=== PATIENT | male | born 1955 | race Caucasian/White ===

== ENCOUNTER 2023-03-12 06:15 | Inpatient (IN) ==
--- NOTE | 2023-02-20 12:30 | PAT Medication Instructions ---
Medication Instructions Date of Service February 20, 2023 Home Medications amoxicillin 500 mg tablet 500 mg PO BID celecoxib 200 mg capsule (Celebrex) 200 mg PO QAM cyclosporine 0.05 % eye drops in a dropperette (Restasis) 1 drp OPB Q12H upadacitinib 30 mg tablet,extended release 24 hr (Rinvoq) 30 mg PO QAM Continue as directed amoxicillin 500 mg tablet 500 mg PO BID ASK your surgeon for instructions celecoxib 200 mg capsule (Celebrex) 200 mg PO QAM ASK your prescriber and surgeon upadacitinib 30 mg tablet,extended release 24 hr (Rinvoq) 30 mg PO QAM Take morning of surgery OTHERWISE NOTHING TO EAT OR DRINK AFTER MIDNIGHT: cyclosporine 0.05 % eye drops in a dropperette (Restasis) 1 drp OPB Q12H Other Notes If you have any questions please call us at [phone] or [phone] or [phone] or [phone]
--- NOTE | 2023-02-26 10:15 | Anesthesiology Consultation ---
Date of Service February 26, 2023 Assessment & Plan (1) Encounter for pre-operative examination: Chart Review Chart Review: Acceptable Risk for Surgery (pending PCP clearance 03/03/23 and September 2021 cardiac testing ) and Patient seen in Pre Admission Testing - Awaiting PCP clearance 03/03/23 - Dr. Juan Archibald (please fax preop testing to PCP) - Please fax [facility] or Dr. Robert's office for stress test, ECHO and event monitor from September 2021 Per PAT appt on 02/26/23, no recent Covid exposures, Covid related symptoms, or recent Covid positive tests. Will leave to surgeon's discretion if preop Covid testing needed History Surgery Operation Date: 03/12/23 10:35 Proposed Procedures p L3-L5 Decompression and Fusion, Spinal Cord Monitoring - Morales Cade, DO Height/Weight Height: 5 ft 10 in Weight: 91.4 kg Allergies Allergy/AdvReac Type Severity Reaction Status Date / Time No Known Allergies Allergy Verified 02/20/23 09:02 Medications Home Medications Medication Instructions Recorded Confirmed Last Taken celecoxib 200 mg capsule (Celebrex) 200 mg PO QAM 02/20/23 02/20/23 Unknown cyclosporine 0.05 % eye drops in a 1 drp OPB Q12H 02/20/23 02/20/23 Unknown dropperette (Restasis) upadacitinib 30 mg tablet,extended 30 mg PO QAM 02/20/23 02/20/23 Unknown release 24 hr (Rinvoq) prednisone 5 mg tablet 5 mg PO DIRECTED PRN Pain 02/26/23 02/26/23 Unknown zolpidem 10 mg tablet (Ambien) 10 mg HS PRN Insomnia 02/26/23 02/26/23 Unknown Past Medical History Medical History Dry eye syndrome Osteoarthritis PAC (premature atrial contraction) had seen Dr. Robert last year for work-up "asymptomatic"- no cardio follow up needed Psoriatic arthritis Follows with rheum- prednisone PRN Stable currently Exercise / Class Metabolic Activity II 4-5 Yardwork/Stairs/Walk up hill (one flight of stairs - no chest pain or SOB ) Past Family History Family History Other No family history of adverse response to anesthesia Past Surgical History Surgical History H/O hemorrhoidectomy x 2 H/O hernia repair x 3 (hernia and umbilical site) History of anesthesia reaction was told with a surgery "the block didn't work" History of arthroscopy rt knee History of carpal tunnel release rt/left History of cataract surgery rt/left History of colonoscopy History of esophagogastroduodenoscopy (EGD) Hx of vasectomy S/P trigger finger release Past Anesthesia History No Hx of Anesthesia Complications (with exception to ineffective PNB) and No Family Hx of Anesthesia Complications History of PONV No Hx of PONV and Hx of Motion Sickness Social History Smoking Status: Never smoker Do You Dip or Chew Tobacco: No Hx Alcohol Use: No substance use type: does not use Review of Systems Patient denies chest pain, shortness of breath, dyspnea on exertion, reflux, cough, wheezing, palpitations. No hx of seizures, stroke, [place], apnea/snoring. No hx of blood clots or blood transfusions Physical Exam Vital Signs VITALS BP 131/76 P 57 TEMP 97.8 SP02 98% RES 16P Constitutional no acute distress ENMT Mouth: no TMJ clicking Thyromental Distance: > or= 3.5 Finger Breadths (4.0) Mallampati Class: I Crowns to molars and side teeth Permanent implant right side Neck neck extension not limited Respiratory normal respiratory effort; no respiratory distress Auscultation: lungs clear to auscultation bilaterally; no wheezes Cardiovascular Rate/Rhythm: regular rate and regular rhythm Heart Sounds: no murmur Vessels: no carotid bruit Musculoskeletal Spine: no pain with cervical ROM Extremities: extremities normal to inspection Psychiatric Orientation: alert Lab Results Anesthesia Preop Results Results Anesthesia Widget: WBC 5.22 K/ul (4.8-10.8) 02/26/23 Hgb 15.5 g/dl (14.0-18.0) 02/26/23 Hct 45.4 % (42.0-52.0) 02/26/23 Plt 258 K/uL (130-400) 02/26/23 Na 138 mmol/L (136-145) 02/26/23 K 4.7 mmol/L (3.5-5.1) 02/26/23 Cl 105 mmol/L (98-107) 02/26/23 CO2 27 mmol/L (21-32) 02/26/23 BUN 22 mg/dl (6-23) 02/26/23 Creat 0.86 mg/dl (0.6-1.4) 02/26/23 Glucose Level 96 mg/dl (70-99(Fasting)) 02/26/23 PT 11.6 Seconds (9.0-12.0) 02/26/23 PTT 28.5 Seconds (21.0-31.0) 02/26/23 INR 1.1 (0.9-1.1) 02/26/23 Urine Color Yellow 02/26/23 Urine Appearance Clear (Clear) 02/26/23 Urine pH 6.0 (4.5-7.5) 02/26/23 Urine Specific [place] 1.011 (1.000-1.030) 02/26/23 Urine Protein Negative (Negative) 02/26/23 Urine Glucose (UA) Negative (Negative) 02/26/23 Urine Ketones Negative (Negative) 02/26/23 Urine Blood Negative (Negative) 02/26/23 Urine Nitrite Negative (Negative) 02/26/23 Urine Bilirubin Negative (Negative) 02/26/23 Urine Urobilinogen Negative (Negative) 02/26/23 Urine Leukocyte Esterase Negative (Negative) 02/26/23 Blood Type O Positive 02/26/23 Antibody Screen NEGATIVE 02/26/23 Testing Electrocardiogram Date: 02/26/23 Findings: + SB @ (55bpm) Otherwise normal EKG per cardio Chest X-Ray Date: 02/26/23 Findings: + NAD FINDINGS: Cardiomediastinal and hilar silhouettes are within normal limits. No pneumothorax, pleural effusion or overt pulmonary edema. Degenerative changes of the shoulders and spine. Hyperinflation with diaphragmatic flattening. Cholecystectomy. Chronic appearing right-sided rib fractures.
[~2023-03-12 06:15] MED LIST: ACETAMINOPHEN 500 MG TAB PO SCH; CeleBREX 200 MG CAP PO SCH; GABAPENTIN 300 MG CAP PO SCH; LR 15ML/HR IV SCH; LR 60ML/HR IV SCH; ceFAZolin 2000MG 2,000 MG/15 ML SYR IV SCH
[2023-03-12] MEDS ORDERED: ePHEDrine sulfate 50 MG/ML AMP IV PRN (06:54)
[2023-03-12] MEDS ORDERED: ONDANSETRON INJ 2 MG/ML 2 ML VIAL IV PRN ×2 (06:54→11:38)
[2023-03-12] MEDS ORDERED: HYDROmorphone INJ 1 MG/ML SYRINGE IV PRN ×2 (06:54→11:38)
[2023-03-12] MEDS ORDERED: ATROPINE SULFATE 0.1 MG/ML 10ML SYR IV PRN (06:54)
[2023-03-12] MEDS ORDERED: MIDAZOLAM HCL 1 MG/ML 2ML VIAL ONE (06:56)
[2023-03-12] MEDS ORDERED: ONDANSETRON INJ 2 MG/ML 2 ML VIAL ONE (06:56)
[2023-03-12] MEDS ORDERED: PROPOFOL IV EMULSION 10 MG/ML 20 ML VIAL IV ONE (06:56)
[2023-03-12] MEDS ORDERED: DEXAMETHASONE SOD INJ 4 MG/ML VIAL ONE (06:56)
[2023-03-12] MEDS ORDERED: LIDOCAINE 2% 2 ML VIAL/AMP(20MG/ML) INFIL ONE (06:56)
[2023-03-12] MEDS ORDERED: fentaNYL citrate PF 100 MCG/2 ML VIAL ONE ×2 (06:56→09:59)
[2023-03-12] MEDS ORDERED: ROCURONIUM BROMIDE 10 MG/ML 5 ML VIAL IV ONE ×3 (06:56→08:14)
[2023-03-12] MEDS ORDERED: SUGAMMADEX SODIUM 200 MG/2 ML VIAL IV ONE (06:59)
[2023-03-12] MEDS ORDERED: BUPIVACAINE/EPINEPHRINE 0.25% 1:200,000 30 ML VIAL ONE (07:06)
[2023-03-12] MEDS ORDERED: ceFAZolin 330 MG/ML 1 GM VIAL ONE (07:06)
[2023-03-12] MEDS ORDERED: KETAMINE 50 MG/5 ML SYRINGE ONE (07:08)
--- NOTE | 2023-03-12 07:42 | History & Physical Bridge Note ---
Date of Service March 12, 2023 History & Physical Bridge Note I have examined the patient, reviewed the History & Physical and in the interval since the performance of the History & Physical I have noted the following changes of clinical significance: no changes noted
--- NOTE | 2023-03-12 07:43 | History & Physical Report ---
Date of Service March 12, 2023 Assessment & Plan (1) Neurogenic claudication due to lumbar spinal stenosis: Plan: Lumbar decompression and fusion L3-L5 History of Present Illness Chief Complaint: Back and leg pain Primary Care Provider: NO PCP Allergies Allergy/AdvReac Type Severity Reaction Status Date / Time No Known Allergies Allergy Verified 03/12/23 06:37 Home Medications Medication Instructions Recorded Confirmed Type celecoxib 200 mg capsule (Celebrex) 200 mg PO QAM 02/20/23 03/12/23 History cyclosporine 0.05 % eye drops in a 1 drp OPB Q12H 02/20/23 03/12/23 History dropperette (Restasis) upadacitinib 30 mg tablet,extended 30 mg PO QAM 02/20/23 03/12/23 History release 24 hr (Rinvoq) prednisone 5 mg tablet 5 mg PO DIRECTED PRN Pain 02/26/23 03/12/23 History zolpidem 10 mg tablet (Ambien) 10 mg HS PRN Insomnia 02/26/23 03/12/23 History Past Med/Surg History Medical History Dry eye syndrome Osteoarthritis PAC (premature atrial contraction) had seen Dr. Robert last year for work-up "asymptomatic"- no cardio follow up needed Psoriatic arthritis Follows with rheum- prednisone PRN Stable currently Surgical History H/O hemorrhoidectomy x 2 H/O hernia repair x 3 (hernia and umbilical site) History of anesthesia reaction was told with a surgery "the block didn't work" History of arthroscopy rt knee History of carpal tunnel release rt/left History of cataract surgery rt/left History of colonoscopy History of esophagogastroduodenoscopy (EGD) Hx of vasectomy S/P trigger finger release Family History Other No family history of adverse response to anesthesia Social History Smoking Status: Never smoker Second Hand Exposure: Yes (as a child); Do You Dip or Chew Tobacco: No; Hx Alcohol Use: No Preferred Language: Georgian Grommet 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
[2023-03-12] MEDS ORDERED: FLOSEAL HEMOSTATIC MATRIX 10ML TOP ONE (08:32)
[2023-03-12] MEDS ORDERED: PHENYLEPHRINE 100MCG/ML 5ML SYR ONE (08:59)
[2023-03-12] MEDS ORDERED: ePHEDrine sulfate 50 MG/5 ML SYR ONE (08:59)
[2023-03-12] MEDS ORDERED: SURGICEL ABSORB HEMOSTAT 2IN X 14IN TOP ONE (09:38)
--- NOTE | 2023-03-12 09:57 | Operative Report ---
Post Operative Report Pre & Post Diagnosis Operation Date: 03/12/23 07:45 Pre-Op Diagnosis: Neurogenic claudication due to lumbar spinal stenosis Post-Op Diagnosis: Neurogenic claudication due to lumbar spinal stenosis I identified the patient and participated in the time-out.: Yes Procedure Operation Date: 03/12/23 07:45 Actual Procedures #1 lumbar compression bilaterally vasectomies and foraminotomies L2-3, L3-L4 L4- 5. #2 posterior spinal fusion L4-5 L5-S1 per #3 please to posterior instrumentation L3-L5. #4 interbody fusion L3-L4 L4-5 #5 please 14 x 26 mm L3-L4 and 12 x 26 mm L4-5 point #6 placement locally harvested morselized Posterior gutters. #7 placement I factor in the body space and combined with mass graft in the posterior lateral gutters. Surgeon Morales Cade, Associate Juvenile Court Judge Kenzie Ramos Estimated Blood Loss 300 Findings Consistent with Post-Op Diagnosis Specimens None Indications 59-year-old male presents with chronic persistent back and leg pain after failing course of nonoperative care is here for surgical invention. Description of Procedure Patient was met with identified informed consent obtained. Patient was then taken to the operative suite underwent patient placed in a prone position on the [place] table top Cale frame. All bony promises well-padded I suspected to ensure no external precipice spine. This point lumbar spine was prepped and draped no sterile fashion. Sharp dissection with assistance of Bovie cautery form down to and exposing the lamina and transverse processes of L3 L4-5. Because of the fashion complete laminectomy of all 4 L3 impression laminectomy of L2 was performed including bilateral medial facetectomies and foraminotomies addressing severe spinal stenosis. Pedicle screws then placed in L3 L4-5 bilaterally with assistance of fluoroscopy and probably stress monse placed. By way of transforaminal approach on the left complete discectomy of L4-5 was performed endplates guarded to subcortical mean bone and a 12 x 26 mm prior cage with I factor tapped in position. Then proceeded L4-[address] of transforaminal posterior left complete discectomy performed endplates corrected to subcortical bleeding bone and a 14 x 26 mm prior cage with I factor tapped in position. The rods and locked in final position bilaterally. The transverse processes well 3 L4-5 burred to subcortical bleeding bone. I factor bone of the testing locally harvested most was placed in the posterior gutters. 15 round SUNNY inserted. The incision was then closed with 1 regular fascia 2-0 Vicryl subcutaneously and 4 Monocryl for final closure. Steri-Strips dressings placed. Patient waken taken PACU stable condition. Please note spinal cord monitoring utilized at the procedure no changes noted. Maria E Ramos was present that the entire surgery brought the patient positioning complex portion of the surgeon fashion closure. I attest to the content of the Intraoperative Record and any orders documented therein. Any exceptions are noted below.
[2023-03-12] MEDS: fentaNYL citrate PF 100 MCG/2 ML VIAL IV PRN ×4 (10:24→10:45)
--- NOTE | 2023-03-12 10:35 | Fluoroscopy Report ---
FL lumbar spine 2-3V CLINICAL HISTORY: L3-5 DECOMP AND FUSION TECHNIQUE: 2 views were obtained with the C-arm in the OR with the above procedure. Total fluoroscopy time was 22.7 seconds. Radiation dose was 15.68 mGy. Comparison: None available at the time of this dictation. FINDINGS/IMPRESSION: Intraoperative images were obtained of L3-L5 decompression and fusion. Please correlate with intraoperative fluoroscopy and operative report. ACT 112: Negative or not required by law. Electronically signed by: Antione Stone M.D. 03/12/2023 10:34 AM
[2023-03-12] MEDS ORDERED: MAGNESIUM HYDROXIDE SUSP 30 ML UDC PO PRN (11:38)
[2023-03-12] MEDS ORDERED: FAMOTIDINE 20 MG TAB PO PRN (11:38)
[2023-03-12] MEDS ORDERED: SOD PHOSPHATE/SOD BIPHOSPHATE ENEMA 132 ML BTL PR PRN (11:38)
[2023-03-12] MEDS ORDERED: DO NOT ADMINISTER FLU VACCINE PRN (11:38)
[2023-03-12] MEDS ORDERED: METOCLOPRAMIDE HCL INJ 5 MG/ML 2 ML VIAL IV PRN (11:38)
[2023-03-12] MEDS ORDERED: ACETAMINOPHEN 1,000 MG/100 ML VIAL IV PRN (11:38)
[2023-03-12] MEDS ORDERED: DO NOT ADMINISTER PNEUMOCOCCAL VACCINE PRN (11:38)
[2023-03-12] MEDS ORDERED: traMADol HCL 50 MG TABLET PO PRN (11:38)
[2023-03-12] MEDS ORDERED: hydrOXYzine HCl 25 MG TAB PO PRN (11:38)
[2023-03-12] MEDS ORDERED: ZOLPIDEM TARTRATE 10 MG TAB PO PRN (11:38)
[2023-03-12] MEDS ORDERED: diphenhydrAMINE Capsule 25 MG CAP PO PRN (11:38)
[2023-03-12] MEDS ORDERED: ACETAMINOPHEN 500 MG TAB PO PRN (11:38)
[2023-03-12] MEDS ORDERED: NALOXONE HCL 0.4 MG/1 ML VIAL/CARP IV PRN (11:38)
[2023-03-12] MEDS ORDERED: LORazepam 2 MG/1 ML VIAL IV PRN (11:38)
[2023-03-12] MEDS ORDERED: PROMETHAZINE HCL 12.5 MG in SODIUM CHLORIDE 0.9% 50 ML IV PRN (11:38)
[2023-03-12] MEDS ORDERED: ALUMINUM/MAGNESIUM SUSP 30 ML UDC PO PRN (11:38)
[2023-03-12] MEDS ORDERED: bisacodyL 10 MG SUPP PR PRN (11:38)
[2023-03-12] MEDS ORDERED: LORazepam 0.5 MG TAB PO PRN (11:38)
[2023-03-12] MEDS ORDERED: HYDROmorphone INJ 0.5 MG/0.5 ML SYR IV PRN (11:38)
[2023-03-12] MEDS ORDERED: ONDANSETRON 4 MG OD TAB PO PRN (11:38)
--- NOTE | 2023-03-12 11:49 | Anesthesiology Progress Note ---
Date of Service March 12, 2023 Anesthesia Post Procedure Vital Signs Vital Signs: Temp Pulse Pulse Resp BP Pulse Ox O2 Del Method 03/12/23 10:40 74 8 L 126/79 98 Oxymask 03/12/23 10:30 70 13 136/79 100 Oxymask 03/12/23 11:10 97.7 F 68 13 126/74 97 Room Air 03/12/23 11:00 97.7 F 70 13 119/75 98 Room Air 03/12/23 10:50 97.7 F 74 13 131/73 98 Room Air 03/12/23 10:20 77 12 129/78 98 Oxymask 03/12/23 10:11 97.9 F 81 13 116/76 100 Oxymask 03/12/23 06:31 97.5 F L 69 20 125/80 98 Room Air O2 Flow Rate 03/12/23 10:40 3 03/12/23 10:30 3 03/12/23 11:10 03/12/23 11:00 03/12/23 10:50 03/12/23 10:20 3 03/12/23 10:11 5 03/12/23 06:31 Pain Intensity Medial Back: Pain Intensity: 6 Transfer of Care Handoff Completed per policy Notes Mental Status: alert / awake / arousable and participated in evaluation Patient Amnestic to Procedure: Yes Nausea / Vomiting: adequately controlled Pain: adequately controlled Airway Patency, RR, SpO2: stable & adequate BP & HR: stable & adequate Hydration State: stable & adequate Anesthetic Complications: no major complications apparent and Pt Satisfied with anesthetic care
[2023-03-12] MEDS ORDERED: *RESTASIS*ORDER AWAITING ACTION SCH (12:00)
--- NOTE | 2023-03-12 12:07 | Hospitalist Consultation ---
Date of Consultation March 12, 2023 Assessment & Plan (1) Status post lumbar spinal fusion: -Currently stable and non-toxic appearing -Pain control, DVT PPX, IV fluids, and perioperative abx per the primary team -No complications post op -Agree with am labs tomorrow, we will follow -Can DC IV fluids when appropriate as patient is eating and drinking well -Would monitor for oversedation with prn pain medications and HS ambien, but patient takes the same dose at home -Thank you for allowing us to participate in the care of this patient, please reach out with any questions or concerns -Medicine will continue to follow (2) Rheumatoid arthritis: -Continue to hold Rinvoq until the primary team is comfortable restarting Plan The patient was discussed with Dr. Lazo at the time of the consult Supervising Physician Co-Signing Physician Notes I personally saw and examined the patient. I verified all cardenas points and agree with Rolando Bajwa PA-C with the following exceptions and/or additions: 67 year old POD#0 lumbar spine decompression. EBL 300ml. Notes already having improvement in pre-op radicular symptoms. No acute concerns or question from the patient. O/E HS RRR, no murmurs, Chest CTAB, Abdo SNT, NV intact in feet A/P s/p lumbar spinal decompression - improvement with pre-op symptoms already. VTE/Pain/bowel regimen per primary orthopedic team. Otherwise as above History of Present Illness Reason for Consultation: Post-op medical management Requesting Physician: Morales Cade DO Attending Physician: Dr. Kenji Lazo History of Present Illness Grant is a 67 year old male with a PMH significant for RA (on Rinvoq), GERD, anxiety, and Neurogenic claudication due to lumbar spinal stenosis who pre sented to the [facility] on 03/12 for L3-L5 Decompression and Fusion, Spinal Cord Monitoring with Dr. Cade. The patient's vitals have remained stable. Per the operative report, EBL was listed as 300 cc and no intraoperative complications were reported. The patient received general anesthesia. We were consulted for post-operative medical management. At the time of the exam the patient was sitting in bed in no acute distress, eating lunch. He states that he is feeling well post-op, his pain is currently a 5/10 but tolerable. He denies new paresthesias or weakness after the procedure. Also denies chest pain, SOB, abd pain, nausea, vomiting, diarrhea, dysuria, hematuria, melena, and recent trauma. His last dose of Rinvoq was on 03/07, and he is not currently on prednisone. Please refer to Dr. Lazo's attestation for any changes to the treatment plan Allergies Allergy/AdvReac Type Severity Reaction Status Date / Time No Known Allergies Allergy Verified 03/12/23 06:37 Home Medications Medication Instructions Recorded Confirmed Type celecoxib 200 mg capsule (Celebrex) 200 mg PO QAM 02/20/23 03/12/23 History cyclosporine 0.05 % eye drops in a 1 drp OPB Q12H 02/20/23 03/12/23 History dropperette (Restasis) upadacitinib 30 mg tablet,extended 30 mg PO QAM 02/20/23 03/12/23 History release 24 hr (Rinvoq) prednisone 5 mg tablet 5 mg PO DIRECTED PRN Pain 02/26/23 03/12/23 History zolpidem 10 mg tablet (Ambien) 10 mg HS PRN Insomnia 02/26/23 03/12/23 History oxycodone 5 mg tablet 5 mg PO Q6H PRN pain #30 tabs 03/13/23 Rx tramadol 50 mg tablet 50 mg PO Q6H PRN pain, moderate 03/13/23 Rx #30 tabs Patient History Medical History Dry eye syndrome Osteoarthritis PAC (premature atrial contraction) had seen Dr. Robert last year for work-up "asymptomatic"- no cardio follow up needed Psoriatic arthritis Follows with rheum- prednisone PRN Stable currently Surgical History H/O hemorrhoidectomy x 2 H/O hernia repair x 3 (hernia and umbilical site) History of anesthesia reaction was told with a surgery "the block didn't work" History of arthroscopy rt knee History of carpal tunnel release rt/left History of cataract surgery rt/left History of colonoscopy History of esophagogastroduodenoscopy (EGD) Hx of vasectomy S/P trigger finger release Family History Other No family history of adverse response to anesthesia Social History Smoking Status: Never smoker Second Hand Exposure: Yes (as a child); Do You Dip or Chew Tobacco: No; Hx Alcohol Use: No Preferred Language: Honduran 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: No Beliefs That Will Affect Care: None Current Living Situation: Spouse Feels Safe at Home: Yes Safety Concerns: Feels Safe At This Time Assistive Devices: Glasses Assistive Devices Comment: reading glasses Physical Exam Physical Exam: Physical Exam: General: In no acute distress, stated age, well-nourished, good hygiene HEENT: Normocephalic, atraumatic, no scleral icterus, pupils around round, symmetrical, and reactive to light, moist mucus membranes, trachea midline, no thyromegaly Chest/Pulm: No respiratory distress, symmetrical chest expansion, clear breath sounds throughout Cardiac: RRR, no murmurs noted Abdomen: Negative for ascites and bruising, normoactive bowel sounds, soft, non-tender to palpation throughout Musculoskeletal: Drain is in place at the surgical site without signs of infection, intact sensation, motor function, and symmetrical strength in the BL upper and lower extremities Extremities: Radial, dorsalis pedis, and posterior tibial pulses are intact and symmetrical, no edema noted in the BL LE's Skin: Warm, dry, no rashes , lesions, or scars noted Neuro: Alert and oriented to person, place, month, year, and president, no focal defects, no tremors noted Psych: No acute distress, calm and cooperative during the exam Results & Data Results & Data Vital Signs (Past 12 Hours) Vital Signs Temp Pulse Pulse Resp BP Pulse Ox O2 Del Method 03/12/23 11:50 36.4 C L 73 16 112/72 97 Room Air 03/12/23 11:20 36.6 C 70 16 126/68 100 Room Air 03/12/23 10:40 74 8 L 126/79 98 Oxymask 03/12/23 10:30 70 13 136/79 100 Oxymask 03/12/23 11:10 36.5 C 68 13 126/74 97 Room Air 03/12/23 11:00 36.5 C 70 13 119/75 98 Room Air 03/12/23 10:50 36.5 C 74 13 131/73 98 Room Air 03/12/23 10:20 77 12 129/78 98 Oxymask 03/12/23 10:11 36.6 C 81 13 116/76 100 Oxymask 03/12/23 06:31 36.4 C L 69 20 125/80 98 Room Air O2 Flow Rate 03/12/23 11:50 03/12/23 11:20 03/12/23 10:40 3 03/12/23 10:30 3 03/12/23 11:10 03/12/23 11:00 03/12/23 10:50 03/12/23 10:20 3 03/12/23 10:11 5 03/12/23 06:31 Laboratory Results Abnormal lab results 03/12/23 Range/Units 06:35 Crossmatch See Detail Diagnostic Findings Lumbar Spine X-Ray 03/12/23 00:00 FL lumbar spine 2-3V CLINICAL HISTORY: L3-5 DECOMP AND FUSION TECHNIQUE: 2 views were obtained with the C-arm in the OR with the above procedure. Total fluoroscopy time was 22.7 seconds. Radiation dose was 15.68 mGy. Comparison: None available at the time of this dictation. FINDINGS/IMPRESSION: Intraoperative images were obtained of L3-L5 decompression and fusion. Please correlate with intraoperative fluoroscopy and operative report. ACT 112: Negative or not required by law. Electronically signed by: Antione Stone M.D. 03/12/2023 10:34 AM PG Care Time/CCT Total # of Minutes Spent Total Time Spent with Patient: Total time spent is greater than 50% in coordination of care (as documented) at patient's floor/unit and/or counseling patient: [place] [address] IN/OBS CONSULT LVL 3,45M Patient Type New Medical Decision Making Moderate Complexity Diagnoses Status post lumbar spinal fusion Z98.1 Rheumatoid arthritis M06.9
[2023-03-12] MEDS ORDERED: ARTIFICIAL TEARS OP PRN (12:50)
[2023-03-12] MEDS: oxyCODONE HCL IR 5 MG TAB (IMMEDIATE RELEASE) PO PRN ×2 (14:11→22:25)
[2023-03-12] MEDS: LACTATED RINGER'S 1,000 ML IV SCH ×2 (14:37→20:24)
[2023-03-12] MEDS: ceFAZolin 2000MG 2,000 MG/15 ML SYR IV SCH ×2 (16:40→23:19)
[2023-03-12] MEDS: cycloSPORINE (RESTASIS) OP SCH (20:25)
[2023-03-12] MEDS: DOCUSATE SODIUM/SENNA 50/8.6MG TAB PO SCH (20:25)
[2023-03-13] MEDS: LACTATED RINGER'S 1,000 ML IV SCH (03:12)
[2023-03-13] MEDS: POLYETHYLENE (MIRALAX) 17 GM PACK PO SCH ×4 (04:52→21:58)
[2023-03-13 06:07] LABS: Basophils # (auto) 0.01 K/uL (0.00-0.20); Basophils % (auto) 0.1 %; Hematocrit (blood only) 35.4 % (42.0-52.0); Immature Granulocytes # (auto) 0.06 K/uL (0.01-0.20); Immature Granulocytes % (auto) 0.6 %; Lymphocytes # (auto) 0.86 K/uL (1.20-3.40); Lymphocytes % (auto) 8.5 %; Mean Corpuscular Hemoglobin 29.2 pg (25.0-34.0); Mean Corpuscular Hgb Conc 33.9 g/dL (32.0-36.0); Mean Corpuscular Volume 86.1 fL (80.0-100.0); Mean Platelet Volume 8.8 fL (9.4-12.4); Monocytes # (auto) 0.99 K/uL (0.11-0.59); Monocytes % (auto) 9.7 %; Neutrophils # (auto) 8.25 K/uL (1.40-6.50); Neutrophils % (auto) 81.1 %; Platelet Count 202 K/uL (130-400); RDW Standard Deviation 40.3 fL (36.4-46.3); Red Blood Count 4.11 M/uL (4.70-6.10); White Blood Count 10.17 K/ul (4.8-10.8)
[2023-03-13 06:24] LABS: BUN Creatinine Ratio 19.5 (10-20); Calcium 8.9 mg/dl (8.6-10.3); Creatinine Clr Calc Pharmacy 97.6 ml/min; Est GFR (African American) 105.3 ml/min; Est GFR (Non-African American) 90.9 ml/min; Potassium 4.2 mmol/L (3.5-5.1)
[2023-03-13] MEDS: dexAMETHasone 6 MG in SYRINGE 0 ML IV SCH (07:36)
[2023-03-13] MEDS: cycloSPORINE (RESTASIS) OP SCH ×2 (07:37→21:46)
[2023-03-13] MEDS: oxyCODONE HCL IR 5 MG TAB (IMMEDIATE RELEASE) PO PRN ×3 (07:46→21:47)
--- NOTE | 2023-03-13 07:46 | Hospitalist Progress Note ---
Date of Service March 13, 2023 Assessment & Plan (1) Status post lumbar spinal fusion: Plan: POD# 1 s/p #1 lumbar compression bilaterally vasectomies and foraminotomies L2- 3, L3-L4 L4-5. #2 posterior spinal fusion L4-5 L5-S1 per #3 please to posterior instrumentation L3-L5. #4 interbody fusion L3-L4 L4-5 #5 please. 14 x 26 mm L3- L4 and 12 x 26 mm L4-5 point #6 placement locally harvested morselized. Posterior gutters. #7 placement I factor in the body space and combined with mass graft in the posterior lateral gutters. with Dr Cade 03/12. EBL 300cc WBC wnl, afebrile Hgb 15.5--> 12.0. * *Acute blood loss anemia from surgery as well as dilutional aspect from IVF. EBL 300cc, SUNNY output 581cc - monitor Dexamethasone IV per primary, perioperative abx Pain regimen/bowel regimen/PT/OT per primary service Monitor labs on repeat Would monitor for oversedation with prn pain medications and HS ambien, but patient takes the same dose at home --> NO ISSUES, will continue such Medicine will continue to follow along, but if SUNNY output decreased/hgb stable/no issues, likely discharge tomorrow vs Friday per patient report. (2) Rheumatoid arthritis: Plan: Continue to hold Rinvoq until the primary team is comfortable restarting Plan Thank you for allowing hospitalist service to participate in the care of Mr Simental. Hospitalist service will follow up in AM but anticipate likely able to sign off. Please call with any questions/concerns. Admission and Anticipated Discharge Date Admission Date: March 12, 2023 Supervising Physician Co-Signing Physician Notes The patient was not seen by me. The chart was reviewed. Case discussed with GILBERT Arellano. Agree with assessment and plan Subjective Eval this morning, doing well. Sitting up in bed reading on his phone. Pain well controlled. Not passing gas/bowel movement yet but feels one coming once he gets up and moving around. Not yet seen by therapy but did see Dr Cade. Anticipating discharge tomorrow vs Friday. Discussed will monitor SUNNY output, he reports having been emptied half a dozen times so far. No fever/chills, chest pain, shortness of breath, lightheadedness/dizziness, nausea or vomiting reported. Questions/concerns addressed at this time. . Review of Systems Review of Systems: All systems reviewed & are unremarkable except as noted in HPI & below Physical Exam Physical Exam: General: WN/WD male sitting up in bed, on his phone, NAD HEENT: head normocephalic, atraumatic, mmm, trachea midline, +glasses Resp: CTA, no w/c/r, on room air CV: RRR, no significant m/r/g, no pitting edema/calf tenderness GI: +BS, slight distension, nontender : no clayton MSK/Neuro: dressing to lumbar spine c/d/i, strength equal b/l LE dorsiflexion/plantarflexion, SUNNY with bloody drainage noted, calves nontender, pulses palpable Psych: AOx3, pleasant and cooperative with exam Results & Data Results & Data Vital Signs (Past 12 Hours) Vital Signs Temp Pulse Resp BP Pulse Ox O2 Del Method 03/13/23 07:22 36.6 C 65 16 107/64 99 Room Air 03/13/23 04:12 36.7 C 69 18 109/62 97 Room Air 03/12/23 21:00 Room Air 03/12/23 22:26 36.4 C L 76 16 104/66 97 Room Air Laboratory Results 03/13/23 03/13/23 03/12/23 Range/Units 05:37 05:37 06:35 WBC 10.17 (4.8-10.8) K/ul RBC 4.11 L (4.70-6.10) M/uL Hgb 12.0 L (14.0-18.0) g/dl Hct 35.4 L (42.0-52.0) % MCV 86.1 (80.0-100.0) fL MCH 29.2 (25.0-34.0) pg MCHC 33.9 (32.0-36.0) g/dL RDW Std Deviation 40.3 (36.4-46.3) fL RDW Coeff of Francisco 13.0 (11.5-14.5) % Plt Count 202 (130-400) K/uL MPV 8.8 L (9.4-12.4) fL Immature Gran % (Auto) 0.6 % Neut % (Auto) 81.1 % Lymph % (Auto) 8.5 % Sierra % (Auto) 9.7 % Eos % (Auto) 0.0 % Baso % (Auto) 0.1 % Neut # (Auto) 8.25 H (1.40-6.50) K/uL Lymph # (Auto) 0.86 L (1.20-3.40) K/uL Sierra # (Auto) 0.99 H (0.11-0.59) K/uL Eos # (Auto) 0.00 (0.00-0.50) K/uL Baso # (Auto) 0.01 (0.00-0.20) K/uL Immature Gran # (Auto) 0.06 (0.01-0.20) K/uL Sodium 138 (136-145) mmol/L Potassium 4.2 (3.5-5.1) mmol/L Chloride 106 (98-107) mmol/L Carbon Dioxide 28 (21-32) mmol/L Anion Gap 4 (3-11) BUN 16 (6-23) mg/dl Creatinine 0.82 (0.6-1.4) mg/dl Est Cr Clr Drug Dosing 97.6 ml/min Est GFR ( Amer) 105.3 ml/min Est GFR (Non-Af Amer) 90.9 ml/min BUN/Creatinine Ratio 19.5 (10-20) Glucose 140 H (70-99(Fasting)) mg/dl Calcium 8.9 (8.6-10.3) mg/dl Blood Type O Positive Antibody Screen NEGATIVE Diagnostic Findings Lumbar Spine X-Ray 03/12/23 00:00 FL lumbar spine 2-3V CLINICAL HISTORY: L3-5 DECOMP AND FUSION TECHNIQUE: 2 views were obtained with the C-arm in the OR with the above procedure. Total fluoroscopy time was 22.7 seconds. Radiation dose was 15.68 mGy. Comparison: None available at the time of this dictation. FINDINGS/IMPRESSION: Intraoperative images were obtained of L3-L5 decompression and fusion. Please correlate with intraoperative fluoroscopy and operative report. ACT 112: Negative or not required by law. Electronically signed by: Antione Stone M.D. 03/12/2023 10:34 AM PG Care Time/CCT Total # of Minutes Spent Total Time Spent with Patient: Total time spent is greater than 50% in coordination of care (as documented) at patient's floor/unit and/or counseling patient: Coding Level of Care Code 62859 SUB INP/OBS CARE 235MIN Diagnoses Status post lumbar spinal fusion Z98.1 Rheumatoid arthritis M06.9
--- NOTE | 2023-03-13 08:32 | Orthopedic Progress Note ---
Date of Service March 13, 2023 Assessment & Plan (1) Neurogenic claudication due to lumbar spinal stenosis: Plan: At this time initiate physical therapy monitor SUNNY output hopefully discharge home in the next few days. Admission and Anticipated Discharge Date Admission Date: March 12, 2023 Subjective Back pain controlled leg pain markedly improved Physical Exam Physical Exam: Patient sitting up in bed appears comfortable. Instructions are to testing. Results & Data Vital Signs (Past 12 Hours) Vital Signs Temp Pulse Resp BP Pulse Ox O2 Del Method 03/13/23 07:22 36.6 C 65 16 107/64 99 Room Air 03/13/23 04:12 36.7 C 69 18 109/62 97 Room Air 03/12/23 21:00 Room Air 03/12/23 22:26 36.4 C L 76 16 104/66 97 Room Air
[2023-03-13] MEDS: DOCUSATE SODIUM/SENNA 50/8.6MG TAB PO SCH (21:47)
[2023-03-14] MEDS: POLYETHYLENE (MIRALAX) 17 GM PACK PO SCH (05:55)
[2023-03-14] MEDS: cycloSPORINE (RESTASIS) OP SCH (08:47)
[2023-03-14] MEDS: dexAMETHasone 6 MG in SYRINGE 0 ML IV SCH ×2 (08:47→09:50)
--- NOTE | 2023-03-14 09:21 | Communication Note ---
Date of Service: March 14, 2023 Stopped by to see patient this morning, up in chair/dressed. SUNNY output decreased significantly. Feeling well. No fever/chills, chest pain, shortness of breath. Not yet seen by Dr Cade but planning for discharge today. Please call with any questions/concerns.
[2023-03-14] MEDS ORDERED: dexAMETHasone 4 MG TAB PO ONE (10:00)
--- NOTE | 2023-03-14 10:05 | Discharge Summary ---
Date of Service March 14, 2023 Principal Diagnosis Lumbar spinal stenosis with neurogenic claudication Discharge Data Allergies Allergy/AdvReac Type Severity Reaction Status Date / Time No Known Allergies Allergy Verified 03/12/23 06:37 Consultations 03/12/23 11:38 Consult Hospitalist Routine Procedures Performed Operation Date: 03/12/23 07:45 Actual Procedures p L3-L5 Decompression and Fusion, Spinal Cord Monitoring(Not Applicable) - Morales Cade DO Ordered Studies 03/12/23 [place] lumbar spine 2-3V Routine Hospital Course (1) Neurogenic claudication due to lumbar spinal stenosis: Patient with lumbar depression and fusion tolerated this well was taken to orthopedic. Labor postop day 1 he was up and ambulating. Postop day #2 with. SUNNY drain decreasing lochia. Extra-strength testing. Stable to discharge home. Discharge orders instructions are on the chart for further review. Total Time Total Time Spent Total Time Spent (In Minutes): 20 minutes Discharge Plan Discharge Items Patient Disposition: Home - Self-Care Reason For Visit: Spinal Stenosis, Lumbar Region without Neurogenic Discharge Diagnosis: Lumbar spinal stenosis with neurogenic claudication Activity: As commented below Non-emergency contact: Primary Care Provider Call non-emergency contact if: you have any medication questions Follow-up/Referrals: PCP,NO [Physician] - Diet: Regular Addtl Attending Provider Instructions: ACTIVITY RECOMMENDATIONS: SELF CARE INSTRUCTIONS AFTER THORACIC/LUMBAR FUSIONS 1. You may walk to your tolerance. It is good exercise for your legs and back. Expect some back and intermittent leg aches and pains. 2. You may perform "counter-top" level activities (make a sandwich, babs with a project, etc.). 3. No bending or lifting of more than 10 pounds or back twisting of any nature (roll like a log when turning in bed). 4. You may ride in a car for 20-30 minutes at a time. No driving until after your first visit with your doctor. 5. Frequent changes of position and restricting sitting to 30 minutes at a time will help limit the amount of back spasms and stiffness you may experience. 6. You may discontinue the use of ambulatory aids (cane, crutches, etc.) once your strength and confidence allow. 7. You may greenhouse instructor the shower and let water strike your incision when you arrive home at least once daily. Do not take a tub bath, sit in a hot tub or go into a swimming pool until after your first recheck in the office. SPECIAL CARE INSTRUCTIONS: VERY IMPORTANT TO READ AND REVIEW A. Your surgical incision has been closed with a cosmetic suture under the skin that will dissolve in about 6 weeks. In 14 days, you can use a pair of clean scissors and cut the suture that is left outside of the skin at th e ends of your incision. 1. The small skin tapes can be removed 7 days after surgery if they have not fallen off by that point. 2. You may keep the wound open to air as much as possible to promote healing after post-op day number 5 unless told otherwise by your doctor. 3. If you think the wound looks like it is becoming infected (redness or worsening drainage) and/or you are experiencing fever, chill or worsening back pain and muscle spasms, contact the office so that we may evaluate you as soon as possible. B. Complications are uncommon, but please contact us if you have any signs or symptoms of: 1. wound infection (fever higher than 102.5 degrees F, redness, separation of wound, drainage, or increasing pain from the incision) 2. blood clots in legs (pain, swelling, redness and warmth in legs) 3. urinary tract infection (fever higher than 102.5 degrees F, burning upon urination or increased frequency of urination) 4. nerve problems (inability to walk on your toes or heels, numbness, loss of bowel or bladder control) 5. any other symptoms that concern you C. Please call the office at if you have any concerns or questions about your operation or recovery. D. No smoking! Smoking drastically decreases the chance of a solid fusion. E. Do not take any anti-inflammatory medications (Indocin, Advil, Motrin, Aspirin, Naprosyn, etc.) as these may inhibit the chance of a solid fusion. Tylenol is okay to take for pain. MANAGING PAIN AFTER SPINAL SURGERY 1. Narcotic medication is intended for short-term use and will be provided for surgical pain. Surgical pain usually lasts for a period of 4-6 weeks. Narcotic medication includes Percocet, Vicodin, Darvocet, Tylenol #3 or Lortab. 2. Longer-term pain is more appropriately treated with non-narcotic medication such as Tylenol ES. 3. Muscle spasm is not appropriately treated with narcotics. Muscle relaxers such as Soma, Flexeril or Skelaxin can be used along with Tylenol ES. 4. Remember that we all live with some "aches and pains". This is not unusual or uncommon after an injury or as we get older. a. Back pain is expected and may include muscle spasms for 4 to 6 weeks after surgery. The pain should gradually improve. If the pain worsens for no apparent reason, please contact the office. b. Intermittent leg pain may also be experienced and should not be concerned about unless it worsens for no apparent reason. If so, please contact the office. 5. We will provide appropriate medication within the normal guidelines of their prescribed use. We will also be very cautious and aware of potential abuse and extended duration of patients' medication needs. a. Pain medications are for your comfort and to assist with sleep and rest so that the tissue can heal. They are not provided in order to return to normal activity and should not be used through the day. To do so or worsening pain at night can result from ongoing tissue damage and development of tolerance to the prescribed medicine. 6. Please allow 2-3 days to process refills. Prescriptions will not be mailed but must be picked up at the office. FOLLOW UP VISIT: Keep your scheduled follow-up appointment. Any questions, please call the office at . Pending Studies at Discharge: No Stand-Alone Forms: [facility], Smoking Cessation Medications and DC Order Prescriptions: New tramadol 50 mg tablet 50 mg PO Q6H PRN (Reason: pain, moderate) Qty: 30 0RF oxycodone 5 mg tablet 5 mg PO Q6H PRN (Reason: pain) Qty: 30 0RF Continued celecoxib [Celebrex] 200 mg Capsule 200 mg PO QAM cyclosporine [Restasis] 0.05 % Dropperette 1 drp OPB Q12H Rinvoq 30 mg Tablet Extended Release 24 Hr 30 mg PO QAM Patient Comments: unsure if dose correct>pt will bring correct dose to PAT apt prednisone 5 mg Tablet 5 mg PO DIRECTED PRN (Reason: Pain) Rx Instructions: Takes PRN if psoriatic arthritis flares zolpidem [Ambien] 10 mg Tablet 10 mg HS PRN (Reason: Insomnia) Discharge Orders: Discharge Order (Routine); Ordered 03/14/23 Ordered By: Morales Cade Admission Data Admit Date/Time: 03/12/23 10:01 Attending Provider: Morales Cade Admit Provider: Morales Cade Primary Care Provider: Juan Archibald Other Providers: Kenji Lazo ; Jeffry Pearson
[2023-03-14] MEDS: oxyCODONE HCL IR 5 MG TAB (IMMEDIATE RELEASE) PO PRN (11:44)
== END 2023-03-14 12:01 | disposition home or self-care (01) | DRG 454 ==
LOC: ASU 06:15 → 3E 10:01